=== PATIENT | female | born 2000 | race American Indian/Alaskan Native ===

== ENCOUNTER 2018-06-16 23:17 | Emergency (ER) | payer MEDICAID, OTHER ==
[2018-06-16 23:29] VITALS: RESP 18; O2SAT 99
[2018-06-17 00:38] LABS: SQUAMOUS EPITHIAL 38 /hpf (0-5); URINE BILIRUBIN NEGATIVE (NEGATIVE); URINE BLOOD NEGATIVE (NEGATIVE); URINE CLARITY Hazy (Clear); URINE COLOR Amber (YELLOW); URINE GLUCOSE (UA) NORMAL (Normal); URINE LEUKOCYTE ESTERASE NEG Leu/uL (Negative); URINE PROTEIN 1+ mg/dL (NEGATIVE)
[2018-06-17 00:41] LABS: HCG,QUALITATIVE URINE POSITIVE (NEGATIVE)
--- NOTE | 2018-06-17 00:42 | C.PDOC ---
History Of Present Illness 18 year old female presents to the emergency department with complaints of nausea, vomiting, and diarrhea prior to arrival. Patient admits to eating oxtail, which she states is difficult for her to eat. Patient reports that she is 8 weeks , and she denies pelvic pain. Patient is /A2. Time Seen by Provider: 06/16/18 23:54 Chief Complaint (Nursing): Abdominal Pain History Per: Patient History/Exam Limitations: no limitations Onset/Duration Of Symptoms: Hrs Current Symptoms Are (Timing): Still Present Context: Food Associated Symptoms: Nausea, Vomiting, Diarrhea : 4 Para: 1 Miscarriage: 2 Past Medical History Reviewed: Historical Data, Nursing Documentation, Vital Signs Vital Signs: Last Vital Signs Temp 98.8 F 06/16/18 23:26 Pulse 71 06/16/18 23:26 Resp 18 06/16/18 23:26 BP 129/79 06/16/18 23:26 Pulse Ox 99 06/16/18 23:26 - Medical History PMH: Asthma Surgical History: No Surg Hx Family History: States: No Known Family Hx - Social History Hx Alcohol Use: No Hx Substance Use: No Review Of Systems Except As Marked, All Systems Reviewed And Found Negative. Constitutional: Negative for: Fever, Chills Cardiovascular: Negative for: Chest Pain Respiratory: Negative for: Cough, Shortness of Breath Gastrointestinal: Positive for: Nausea, Vomiting, Diarrhea Physical Exam - Physical Exam Appears: Non-toxic, No Acute Distress Head: Atraumatic, Normacephalic Eye(s): bilateral: Normal Inspection, PERRL, EOMI Oral Mucosa: Moist Neck: Normal, Supple Chest: Symmetrical, No Tenderness Cardiovascular: Rhythm Regular, No Murmur Respiratory: Normal Breath Sounds Gastrointestinal/Abdominal: Soft, No Tenderness, No Guarding, No Rebound, Other (obese, gravid) Neurological/Psych: Oriented x3, Normal Speech, Normal Cognition ED Course And Treatment - Laboratory Results Lab Results: Urine Color Lanette (YELLOW) 06/17/18 00:15 Urine Clarity Hazy (Clear) 06/17/18 00:15 Urine pH 5.0 (5.0-8.0) 06/17/18 00:15 Ur Specific Stop[place] 1.038 (1.003-1.030) H 06/17/18 00:15 Urine Protein 1+ mg/dL (NEGATIVE) H 06/17/18 00:15 Urine Glucose (UA) Normal mg/dL (Normal) 06/17/18 00:15 Urine Ketones 1+ mg/dL (NEGATIVE) H 06/17/18 00:15 Urine Blood Negative (NEGATIVE) 06/17/18 00:15 Urine Nitrate Negative (NEGATIVE) 06/17/18 00:15 Urine Bilirubin Negative (NEGATIVE) 06/17/18 00:15 Urine Urobilinogen 2.0 mg/dL (0.2-1.0) H 06/17/18 00:15 Ur Leukocyte Esterase Neg Yoana/uL (Negative) 06/17/18 00:15 Urine WBC (Auto) 1 /hpf (0-5) 06/17/18 00:15 Urine RBC (Auto) 1 /hpf (0-3) 06/17/18 00:15 Ur Squamous Epith Cells 38 /hpf (0-5) H 06/17/18 00:15 Urine HCG, Qual Positive (NEGATIVE) 06/17/18 00:15 Urine HCG, Qual Positive (NEGATIVE) 06/17/18 00:15 Lab Interpretation: Normal (ua norm) Urine POC: Positive O2 Sat by Pulse Oximetry: 99 (RA) Pulse Ox Interpretation: Normal Medical Decision Making Medical Decision Making: n/v/d after eating ox tails for dinner 8 wks by dates, no prior US A2 + Plan: Urinalysis Urine Disposition Doctor Will See Patient In The: Office Counseled Patient/Family Regarding: Studies Performed, Diagnosis - Disposition Referrals: [facility] [Outside] [facility] [Outside] [facility] [Outside] [facility] [Outside] Disposition: HOME/ ROUTINE Disposition Time: 00:42 Condition: GOOD Additional Instructions: your test is Positive Instructions: Food Poisoning, Diarrhea in Adolescents and Adults Forms: [facility] ([place]ronesian) - Clinical Impression Clinical Impression: Vomiting, Diarrhea - Scribe Statement The provider has reviewed the documentation as recorded by the Scribe (Rajesh Healy) Provider Attestation: All medical record entries made by the Scribe were at my direction and personally dictated by me. I have reviewed the chart and agree that the record accurately reflects my personal performance of the history, physical exam, medical decision making, and the department course for this patient. I have also personally directed, reviewed, and agree with the discharge instructions and disposition.
[2018-06-17 00:43] VITALS: BP 124/82; PULSE 76; TEMP 98.4
== END 2018-06-17 01:02 | disposition home or self-care (01) ==
LOC: C.ER 23:17
DX: O21.9 Vomiting of pregnancy, unspecified (principal); O26.891 Other specified pregnancy related conditions, first trimester; R19.7 Diarrhea, unspecified; Z3A.08 8 weeks gestation of pregnancy